=== PATIENT | male | born 1970 | race Two or more races ===

== ENCOUNTER 2016-10-24 12:26 | Inpatient (IN) | payer OTHER ==
[2016-10-24 13:45] VITALS: BMI 24.2
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
[2016-10-24] MEDS ORDERED: MAGNESIUM HYDROX 2400MG/30ML ORAL SUSPENSION 30 ML CUP PO PRN (17:59)
[2016-10-24] MEDS ORDERED: P-EPHED 60MG/TRIPROLIDI 2.5MG TABLET PO PRN (17:59)
[2016-10-24] MEDS ORDERED: chlordiazePOXIDE HCL 25 MG CAPSULE PO PRN (17:59)
[2016-10-24] MEDS ORDERED: NICOTINE POLACRILEX 2 MG GUM BC PRN (17:59)
[2016-10-24] MEDS ORDERED: ACETAMINOPHEN 325 MG TABLET (FP) PO PRN (17:59)
[2016-10-24] MEDS ORDERED: LOPERAMIDE HCL 2 MG CAPSULE PO PRN (17:59)
[2016-10-24] MEDS ORDERED: hydrOXYzine PAMOATE 50 MG CAPSULE (FP) PO PRN (17:59)
[2016-10-24] MEDS ORDERED: diphenhydrAMINE HCL 50 MG CAPSULE PO PRN (17:59)
[2016-10-24] MEDS ORDERED: MAG HYDROX/AL HYDROX/SIMETH 30 ML UNIT-DOSE CUP PO PRN (17:59)
[2016-10-24] MEDS ORDERED: MAGNESIUM CITRATE 300 ML BOTTLE PO PRN (17:59)
[2016-10-24] MEDS ORDERED: MENTHOL/PHENOL 1 EACH UD MM PRN (17:59)
[2016-10-24] MEDS ORDERED: ALBUTEROL SO4 6.7 GM HFA INHALER IH PRN (18:03)
[2016-10-24] MEDS ORDERED: chlordiazePOXIDE HCL 25 MG CAPSULE PO ONE (18:30)
[2016-10-24] MEDS: NICOTINE 21 MG/24 HOURS TOPICAL PATCH TD SCH (18:37)
[2016-10-24] MEDS: THIAMINE HCL 100 MG TABLET (FP) PO SCH (22:21)
[2016-10-24] MEDS: TRIAMCINOLONE ACETONIDE TP SCH (22:21)
[2016-10-24] MEDS: chlordiazePOXIDE HCL 25 MG CAPSULE PO SCH (22:21)
[2016-10-24 22:33] LABS: URINE APPEARANCE CLEAR; URINE BILIRUBIN NEGATIVE (NEGATIVE); URINE BLOOD NEGATIVE (NEGATIVE); URINE COLOR LTYELLOW; URINE GLUCOSE (UA) NEGATIVE (NEGATIVE); URINE KETONE NEGATIVE (NEGATIVE); URINE LEUK ESTERASE NEGATIVE (NEGATIVE); URINE NITRITE NEGATIVE (NEGATIVE); URINE PROTEIN NEGATIVE (NEGATIVE); URINE UROBILINOGEN NEGATIVE mg/dL (0.2-1.0)
[2016-10-24] MEDS: guaiFENesin/D-METHORPHAN HB 10 ML UNIT-DOSE CUPS PO PRN (22:43)
[2016-10-25] MEDS: chlordiazePOXIDE HCL 25 MG CAPSULE PO SCH ×4 (05:16→22:07)
[2016-10-25] MEDS: guaiFENesin/D-METHORPHAN HB 10 ML UNIT-DOSE CUPS PO PRN ×2 (05:17→12:30)
[2016-10-25] MEDS: PRENATAL VITAMINS W/ FOLIC ACID TABLET (FP) PO SCH (10:28)
[2016-10-25] MEDS: TRIAMCINOLONE ACETONIDE TP SCH ×2 (10:30→21:57)
[2016-10-25] MEDS: NICOTINE 21 MG/24 HOURS TOPICAL PATCH TD SCH (10:31)
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
--- NOTE | 2016-10-25 11:18 | PN ---
[facility] CIWA - CIWA Score Nausea/Vomitin-No Nausea/No Vomiting Muscle Tremors: 4-Moderate,w/Arms Extend Anxiety: 4-Mod. Anxious/Guarded Agitation: 4-Moderately Restless Paroxysmal Sweats: 1-Minimal Palms Moist Orientation: 0-Oriented Tacttile Disturbances: 3-Moderate Itch/Numb/Burn Auditory Disturbances: 0-None Visual Disturbances: 0-None Headache: 0-None Present CIWA-Ar Total Score: 16 BHS Progress Note (SOAP) Subjective: ANXIETY,SWEATS,TREMORS,INTERMITTENT SLEEP. Objective: 10/25/16 11:17 Vital Signs Temperature 97.2 F L 10/25/16 09:20 Pulse Rate 76 10/25/16 09:20 Respiratory Rate 18 10/25/16 09:20 Blood Pressure 112/77 10/25/16 09:20 O2 Sat by Pulse Oximetry (%) Laboratory Last Values Urine Color Ltyellow 10/24/16 22:20 Urine Appearance Clear 10/24/16 22:20 Urine pH 7.0 (5.0-8.0) 10/24/16 22:20 Urine Protein Negative (NEGATIVE) 10/24/16 22:20 Urine Glucose (UA) Negative (NEGATIVE) 10/24/16 22:20 Urine Ketones Negative (NEGATIVE) 10/24/16 22:20 Urine Blood Negative (NEGATIVE) 10/24/16 22:20 Urine Nitrite Negative (NEGATIVE) 10/24/16 22:20 Urine Bilirubin Negative (NEGATIVE) 10/24/16 22:20 Urine Urobilinogen Negative mg/dL (0.2-1.0) 10/24/16 22:20 Ur Leukocyte Esterase Negative (NEGATIVE) 10/24/16 22:20 OTHER LABS PENDING Assessment: 10/25/16 11:18 WITHDRAWAL SX Plan: CONTINUE DETOX
[2016-10-25] MEDS: DIVALPROEX SODIUM 250 MG TABLET E.C. (FP) PO SCH ×2 (12:30→22:07)
[2016-10-25 12:32] LABS: RDW 14.4 % (11.9-15.9)
[2016-10-25 12:36] LABS: MCH 32.9 pg (25.7-33.7); MCHC 33.1 g/dl (32.0-35.9); MEAN CELL VOLUME 99.4 fl (80-96); MEAN PLT VOLUME 9.7 fl (7.5-11.1); PLATELET COUNT 332 K/MM3 (134-434); WHITE BLOOD COUNT 9.6 K/mm3 (4.0-10.0)
[2016-10-25 12:48] LABS: ALBUMIN 3.5 g/dl (3.4-5.0); ALK PHOS 129 U/L (45-117); ANION GAP 8 (8-16); BILIRUBIN,TOTAL 0.3 mg/dL (0.2-1.0); CALCIUM 9.4 mg/dL (8.5-10.1); CO2 30 mmol/L (21-32); GLUCOSE,RANDOM 90 mg/dL (74-106); SGOT/AST 14 U/L (15-37); SGPT/ALT 28 U/L (12-78); TOT PROT 7.1 g/dl (6.4-8.2)
[2016-10-25 14:13] LABS: HIV 1 & 2 AB NEGATIVE; HIV 1 AGp24 NEGATIVE
[2016-10-25] MEDS: LIDOCAINE 5% TOPICAL PATCH TP SCH (17:30)
[2016-10-25] MEDS: ZOLPIDEM TARTRATE 10 MG TABLET (PARK CARE ONLY) PO PRN (22:07)
[2016-10-25] MEDS: THIAMINE HCL 100 MG TABLET (FP) PO SCH (22:07)
[2016-10-25] MEDS: LIDOCAINE PATCH REMOVAL MC SCH (22:09)
[2016-10-26] MEDS: IBUPROFEN 400 MG TABLET (FP) PO PRN (00:16)
[2016-10-26] MEDS: chlordiazePOXIDE HCL 25 MG CAPSULE PO SCH ×3 (05:20→17:06)
[2016-10-26] MEDS: guaiFENesin/D-METHORPHAN HB 10 ML UNIT-DOSE CUPS PO PRN (05:20)
[2016-10-26] MEDS: ALBUTEROL SO4 2.5/IPRATROPIUM 0.5 INH SOL 3 ML VIAL.NEB. NEB SCH ×3 (10:20→22:17)
[2016-10-26] MEDS: LIDOCAINE 5% TOPICAL PATCH TP SCH (10:20)
[2016-10-26] MEDS: NICOTINE 21 MG/24 HOURS TOPICAL PATCH TD SCH (10:20)
[2016-10-26] MEDS: DIVALPROEX SODIUM 250 MG TABLET E.C. (FP) PO SCH ×2 (10:20→22:12)
[2016-10-26] MEDS: PRENATAL VITAMINS W/ FOLIC ACID TABLET (FP) PO SCH (10:20)
[2016-10-26] MEDS: TRIAMCINOLONE ACETONIDE TP SCH ×2 (10:21→22:17)
[2016-10-26] MEDS: BUDESONIDE/FORMETEROL FUMARATE 80/4.5 mcg INHALER IH SCH ×2 (10:21→22:15)
--- NOTE | 2016-10-26 11:23 | PN ---
[facility] CIWA - CIWA Score Nausea/Vomitin-No Nausea/No Vomiting Muscle Tremors: 4-Moderate,w/Arms Extend Anxiety: 4-Mod. Anxious/Guarded Agitation: 4-Moderately Restless Paroxysmal Sweats: 1-Minimal Palms Moist Orientation: 0-Oriented Tacttile Disturbances: 3-Moderate Itch/Numb/Burn Auditory Disturbances: 0-None Visual Disturbances: 0-None Headache: 0-None Present CIWA-Ar Total Score: 16 BHS Progress Note (SOAP) Subjective: ANXIETY,SWEATS,COUGHING WITH BROWNISH SPUTUM. HX ASTHMA. Objective: 10/26/16 11:24 Vital Signs Temperature 97.1 F L 10/26/16 09:34 Pulse Rate 86 10/26/16 09:34 Respiratory Rate 18 10/26/16 09:34 Blood Pressure 107/71 10/26/16 09:34 O2 Sat by Pulse Oximetry (%) Laboratory Last Values WBC 9.6 K/mm3 (4.0-10.0) 10/25/16 07:40 RBC 4.57 M/mm3 (4.00-5.60) 10/25/16 07:40 Hgb 15.0 GM/dL (11.7-16.9) 10/25/16 07:40 Hct 45.4 % (35.4-49) 10/25/16 07:40 MCV 99.4 fl (80-96) H 10/25/16 07:40 MCH 32.9 pg (25.7-33.7) 10/25/16 07:40 MCHC 33.1 g/dl (32.0-35.9) 10/25/16 07:40 RDW 14.4 % (11.9-15.9) 10/25/16 07:40 Plt Count 332 K/MM3 (134-434) 10/25/16 07:40 MPV 9.7 fl (7.5-11.1) 10/25/16 07:40 Sodium 140 mmol/L (136-145) 10/25/16 07:40 Potassium 4.7 mmol/L (3.5-5.1) 10/25/16 07:40 Chloride 102 mmol/L (98-107) 10/25/16 07:40 Carbon Dioxide 30 mmol/L (21-32) 10/25/16 07:40 Anion Gap 8 (8-16) 10/25/16 07:40 BUN 15 mg/dL (7-18) D 10/25/16 07:40 Creatinine 1.0 mg/dL (0.7-1.3) 10/25/16 07:40 Creat Clearance w eGFR > 60 (>60) 10/25/16 07:40 Random Glucose 90 mg/dL (74-106) D 10/25/16 07:40 Calcium 9.4 mg/dL (8.5-10.1) 10/25/16 07:40 Total Bilirubin 0.3 mg/dL (0.2-1.0) D 10/25/16 07:40 AST 14 U/L (15-37) L D 10/25/16 07:40 ALT 28 U/L (12-78) D 10/25/16 07:40 Alkaline Phosphatase 129 U/L (45-117) H 10/25/16 07:40 Total Protein 7.1 g/dl (6.4-8.2) 10/25/16 07:40 Albumin 3.5 g/dl (3.4-5.0) 10/25/16 07:40 Urine Color Ltyellow 10/24/16 22:20 Urine Appearance Clear 10/24/16 22:20 Urine pH 7.0 (5.0-8.0) 10/24/16 22:20 Ur Specific [place] 1.020 (1.005-1.025) 10/24/16 22:20 Urine Protein Negative (NEGATIVE) 10/24/16 22:20 Urine Glucose (UA) Negative (NEGATIVE) 10/24/16 22:20 Urine Ketones Negative (NEGATIVE) 10/24/16 22:20 Urine Blood Negative (NEGATIVE) 10/24/16 22:20 Urine Nitrite Negative (NEGATIVE) 10/24/16 22:20 Urine Bilirubin Negative (NEGATIVE) 10/24/16 22:20 Urine Urobilinogen Negative mg/dL (0.2-1.0) 10/24/16 22:20 Ur Leukocyte Esterase Negative (NEGATIVE) 10/24/16 22:20 HIV 1&2 Antibody Screen Negative 10/25/16 07:40 HIV P24 Antigen Negative 10/25/16 07:40 LUNGS: OCCASIONAL MILD WHEEZING AND RHONCHI BILATERALLY. Assessment: 10/26/16 11:33 WITHDRAWAL SX Plan: CONTINUE DETOX
--- NOTE | 2016-10-26 14:50 | EKG ---
Test Reason : Blood Pressure : / mmHG Vent. Rate : 073 BPM Atrial Rate : 073 BPM P-R Int : 124 ms QRS Dur : 088 ms QT Int : 388 ms P-R-T Axes : 058 052 025 degrees QTc Int : 427 ms NORMAL SINUS RHYTHM NORMAL ECG WHEN COMPARED WITH ECG OF 24-OCT-2016 17:38, NO SIGNIFICANT CHANGE WAS FOUND Confirmed by YAIMA CHRISTOPHER MD ([id number]) on 10/26/2016 2:49:36 PM Referred By: Confirmed By:YAIMA CHRISTOPHER MD
--- NOTE | 2016-10-26 14:52 | EKG ---
Test Reason : Blood Pressure : / mmHG Vent. Rate : 070 BPM Atrial Rate : 070 BPM P-R Int : 126 ms QRS Dur : 084 ms QT Int : 388 ms P-R-T Axes : 057 055 029 degrees QTc Int : 419 ms NORMAL SINUS RHYTHM NORMAL ECG NO PREVIOUS ECGS AVAILABLE Confirmed by YAIMA CHRISTOPHER MD ([id number]) on 10/26/2016 2:51:27 PM Referred By: Confirmed By:YAIMA CHRISTOPHER MD
[2016-10-26] MEDS: THIAMINE HCL 100 MG TABLET (FP) PO SCH (22:12)
[2016-10-26] MEDS: LIDOCAINE PATCH REMOVAL MC SCH (22:12)
[2016-10-26] MEDS: ZOLPIDEM TARTRATE 10 MG TABLET (PARK CARE ONLY) PO PRN (22:12)
[2016-10-26] MEDS: chlordiazePOXIDE 5 MG CAPSULE PO SCH (22:12)
[2016-10-27] MEDS ORDERED: ALBUTEROL SO4 2.5/IPRATROPIUM 0.5 INH SOL 3 ML VIAL.NEB. NEB ONE (02:07)
[2016-10-27] MEDS: chlordiazePOXIDE 5 MG CAPSULE PO SCH ×3 (05:26→17:08)
[2016-10-27] MEDS ORDERED: ALBUTEROL SO4 2.5/IPRATROPIUM 0.5 INH SOL 3 ML VIAL.NEB. NEB SCH (09:51)
[2016-10-27] MEDS: ALBUTEROL SO4 2.5/IPRATROPIUM 0.5 INH SOL 3 ML VIAL.NEB. NEB SCH ×4 (10:30→22:22)
[2016-10-27] MEDS: BUDESONIDE/FORMETEROL FUMARATE 80/4.5 mcg INHALER IH SCH ×2 (10:30→22:17)
[2016-10-27] MEDS: PRENATAL VITAMINS W/ FOLIC ACID TABLET (FP) PO SCH (10:30)
[2016-10-27] MEDS: DIVALPROEX SODIUM 250 MG TABLET E.C. (FP) PO SCH ×2 (10:30→22:17)
[2016-10-27] MEDS: TRIAMCINOLONE ACETONIDE TP SCH ×2 (10:31→22:26)
[2016-10-27] MEDS: LIDOCAINE 5% TOPICAL PATCH TP SCH (10:31)
[2016-10-27] MEDS: NICOTINE 21 MG/24 HOURS TOPICAL PATCH TD SCH (10:31)
--- NOTE | 2016-10-27 10:43 | PN ---
BHS Progress Note (SOAP) Subjective: SLIGHT ANXIETY,SWEATS, TREMORS. OOB. NO C/O SOB. Objective: 10/27/16 10:41 Vital Signs Temperature 99.0 F 10/27/16 09:26 Pulse Rate 99 H 10/27/16 09:26 Respiratory Rate 18 10/27/16 09:26 Blood Pressure 105/70 10/27/16 09:26 O2 Sat by Pulse Oximetry (%) Laboratory Last Values WBC 9.6 K/mm3 (4.0-10.0) 10/25/16 07:40 RBC 4.57 M/mm3 (4.00-5.60) 10/25/16 07:40 Hgb 15.0 GM/dL (11.7-16.9) 10/25/16 07:40 Hct 45.4 % (35.4-49) 10/25/16 07:40 MCV 99.4 fl (80-96) H 10/25/16 07:40 MCH 32.9 pg (25.7-33.7) 10/25/16 07:40 MCHC 33.1 g/dl (32.0-35.9) 10/25/16 07:40 RDW 14.4 % (11.9-15.9) 10/25/16 07:40 Plt Count 332 K/MM3 (134-434) 10/25/16 07:40 MPV 9.7 fl (7.5-11.1) 10/25/16 07:40 Sodium 140 mmol/L (136-145) 10/25/16 07:40 Potassium 4.7 mmol/L (3.5-5.1) 10/25/16 07:40 Chloride 102 mmol/L (98-107) 10/25/16 07:40 Carbon Dioxide 30 mmol/L (21-32) 10/25/16 07:40 Anion Gap 8 (8-16) 10/25/16 07:40 BUN 15 mg/dL (7-18) D 10/25/16 07:40 Creatinine 1.0 mg/dL (0.7-1.3) 10/25/16 07:40 Creat Clearance w eGFR > 60 (>60) 10/25/16 07:40 Random Glucose 90 mg/dL (74-106) D 10/25/16 07:40 Calcium 9.4 mg/dL (8.5-10.1) 10/25/16 07:40 Total Bilirubin 0.3 mg/dL (0.2-1.0) D 10/25/16 07:40 AST 14 U/L (15-37) L D 10/25/16 07:40 ALT 28 U/L (12-78) D 10/25/16 07:40 Alkaline Phosphatase 129 U/L (45-117) H 10/25/16 07:40 Total Protein 7.1 g/dl (6.4-8.2) 10/25/16 07:40 Albumin 3.5 g/dl (3.4-5.0) 10/25/16 07:40 Urine Color Ltyellow 10/24/16 22:20 Urine Appearance Clear 10/24/16 22:20 Urine pH 7.0 (5.0-8.0) 10/24/16 22:20 Ur Specific [place] 1.020 (1.005-1.025) 10/24/16 22:20 Urine Protein Negative (NEGATIVE) 10/24/16 22:20 Urine Glucose (UA) Negative (NEGATIVE) 10/24/16 22:20 Urine Ketones Negative (NEGATIVE) 10/24/16 22:20 Urine Blood Negative (NEGATIVE) 10/24/16 22:20 Urine Nitrite Negative (NEGATIVE) 10/24/16 22:20 Urine Bilirubin Negative (NEGATIVE) 10/24/16 22:20 Urine Urobilinogen Negative mg/dL (0.2-1.0) 10/24/16 22:20 Ur Leukocyte Esterase Negative (NEGATIVE) 10/24/16 22:20 Valproic Acid 27.022 ug/ml (50-100) L 10/26/16 10:00 RPR Titer Nonreactive (NONREACTIVE) 10/25/16 07:40 HIV 1&2 Antibody Screen Negative 10/25/16 07:40 HIV P24 Antigen Negative 10/25/16 07:40 LUNGS: GROSSLY CLEAR TO A/P ALL [place]. Assessment: 10/27/16 10:42 WITHDRAWAL SX Plan: CONTINUE DETOX
[2016-10-27 21:52] VITALS: TEMP 96.9
[2016-10-27] MEDS ORDERED: MONTELUKAST NA 10 MG TABLET PO SCH (22:00)
[2016-10-27] MEDS: THIAMINE HCL 100 MG TABLET (FP) PO SCH (22:17)
[2016-10-27] MEDS: LIDOCAINE PATCH REMOVAL MC SCH (22:17)
[2016-10-27] MEDS: chlordiazePOXIDE HCL 10 MG CAPSULE PO SCH (22:17)
[2016-10-27] MEDS: ZOLPIDEM TARTRATE 10 MG TABLET (PARK CARE ONLY) PO PRN (22:17)
[2016-10-28] MEDS: IBUPROFEN 400 MG TABLET (FP) PO PRN (00:24)
[2016-10-28] MEDS: chlordiazePOXIDE HCL 10 MG CAPSULE PO SCH (05:52)
[2016-10-28 06:18] VITALS: BP 110/73; PULSE 83
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
== END 2016-10-28 08:50 | disposition home or self-care (01) | DRG 897 ==
LOC: YASAS 12:26 → Y3N 17:48
PROVIDERS: ADMIT Internal Medicine; ATTEND Internal Medicine
PROC: HZ2ZZZZ Detoxification Services for Substance Abuse Treatment (ICD-10-PCS; principal; 2016-10-24)
DX: F10.230 Alcohol dependence with withdrawal, uncomplicated (principal); F14.20 Cocaine dependence, uncomplicated; F17.213 Nicotine dependence, cigarettes, with withdrawal; F19.24 Other psychoactive substance dependence with psychoactive substance-induced mood disorder; F31.9 Bipolar disorder, unspecified; J45.20 Mild intermittent asthma, uncomplicated; L40.9 Psoriasis, unspecified; M51.26 Other intervertebral disc displacement, lumbar region; M54.5 Low back pain; G89.29 Other chronic pain; Z87.898 Personal history of other specified conditions; Z59.0 Homelessness
CPT/HCPCS: 36415; 80053; 80164; 81003; 85027; 86593; 87389; 93005; 93010; 94640

== ENCOUNTER 2017-08-24 12:09 | Inpatient (IN) | payer OTHER ==
[2017-08-24 13:24] VITALS: BMI 24.3
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
[2017-08-24] MEDS ORDERED: IBUPROFEN 400 MG TABLET (FP) PO PRN (14:52)
[2017-08-24] MEDS ORDERED: guaiFENesin/D-METHORPHAN HB 10 ML UNIT-DOSE CUPS PO PRN (14:52)
[2017-08-24] MEDS ORDERED: MENTHOL/PHENOL 1 EACH UD MM PRN (14:52)
[2017-08-24] MEDS ORDERED: MAGNESIUM CITRATE 300 ML BOTTLE PO PRN (14:52)
[2017-08-24] MEDS ORDERED: LOPERAMIDE HCL 2 MG CAPSULE PO PRN (14:52)
[2017-08-24] MEDS ORDERED: MAG HYDROX/AL HYDROX/SIMETH 30 ML UNIT-DOSE CUP PO PRN (14:52)
[2017-08-24] MEDS ORDERED: P-EPHED 60MG/TRIPROLIDI 2.5MG TABLET PO PRN (14:52)
[2017-08-24] MEDS ORDERED: MAGNESIUM HYDROX 2400MG/30ML ORAL SUSPENSION 30 ML CUP PO PRN (14:52)
[2017-08-24] MEDS ORDERED: ACETAMINOPHEN 325 MG TABLET (FP) PO PRN (14:52)
[2017-08-24] MEDS ORDERED: NICOTINE POLACRILEX 4 MG GUM BC PRN (14:52)
[2017-08-24] MEDS ORDERED: ALBUTEROL SO4 18 GM HFA INHALER IH PRN (14:53)
[2017-08-24] MEDS: CYCLOBENZAPRINE HCL 10 MG TABLET (FP) PO SCH ×2 (18:00→21:22)
[2017-08-24] MEDS ORDERED: TUBERCULIN PPD 5 TU/0.1ML VIAL ID ONE (19:07)
[2017-08-24] MEDS: NICOTINE 21 MG/24 HOURS TOPICAL PATCH TD SCH (19:14)
[2017-08-24] MEDS: TRIAMCINOLONE ACET 0.5% OINT 15 GM TUBE TP SCH (21:21)
[2017-08-24] MEDS: MELATONIN 5 MG TABLETS PO PRN (21:21)
[2017-08-24] MEDS: THIAMINE HCL 100 MG TABLET (FP) PO SCH (21:21)
[2017-08-24 23:19] LABS: URINE APPEARANCE CLEAR; URINE BILIRUBIN NEGATIVE (<2.0 mg/dL); URINE BLOOD NEGATIVE (NEGATIVE); URINE COLOR LTYELLOW; URINE GLUCOSE (UA) NEGATIVE (NEGATIVE); URINE KETONE NEGATIVE (NEGATIVE); URINE LEUK ESTERASE NEGATIVE (NEGATIVE); URINE NITRITE NEGATIVE (NEGATIVE); URINE PROTEIN NEGATIVE (NEGATIVE); URINE UROBILINOGEN NEGATIVE mg/dL (0.2-1.0)
[2017-08-25] MEDS: CYCLOBENZAPRINE HCL 10 MG TABLET (FP) PO SCH ×3 (06:21→21:03)
[2017-08-25] MEDS: NICOTINE 21 MG/24 HOURS TOPICAL PATCH TD SCH (09:59)
[2017-08-25] MEDS: PRENATAL VITAMINS W/ FOLIC ACID TABLET (FP) PO SCH (09:59)
[2017-08-25] MEDS: TRIAMCINOLONE ACET 0.5% OINT 15 GM TUBE TP SCH ×2 (10:00→21:05)
[2017-08-25 10:27] LABS: HEMOGLOBIN 14.6 GM/dL (11.7-16.9); MCH 33.2 pg (25.7-33.7); MEAN CELL VOLUME 97.6 fl (80-96); MEAN PLT VOLUME 10.6 fl (7.5-11.1); PLATELET COUNT 335 K/MM3 (134-434); RBC 4.41 M/mm3 (4.00-5.60); RDW 13.3 % (11.9-15.9); WHITE BLOOD COUNT 6.8 K/mm3 (4.0-10.0)
[2017-08-25 10:45] LABS: CHLORIDE 104 mmol/L (98-107); POTASSIUM 4.6 mmol/L (3.5-5.1); SODIUM 135 mmol/L (136-145)
[2017-08-25 11:14] LABS: ALK PHOS 111 U/L (45-117); ANION GAP 7 (8-16); BILIRUBIN,TOTAL 0.3 mg/dL (0.2-1.0); BLOOD UREA NITROGEN 18 mg/dL (7-18); CALCIUM 9.6 mg/dL (8.5-10.1); CO2 24 mmol/L (21-32); GLUCOSE,RANDOM 96 mg/dL (74-106); SGOT/AST 20 U/L (15-37); SGPT/ALT 42 U/L (12-78); TOT PROT 7.7 g/dl (6.4-8.2)
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
--- NOTE | 2017-08-25 14:57 | PN ---
[facility] Progress Note Note: PATIENT PRESENTS WITH CHRONIC BACK PAIN DUE TO HERNIATED DISCS. PAIN LEVEL 6/10 , NON-RADIATING. PAIN DAILY AND DESCRIBED SHARP. Laboratory Tests 08/24/17 08/25/17 08/25/17 23:10 06:00 06:00 WBC 6.8 RBC 4.41 Hgb 14.6 Hct 43.0 MCV 97.6 H MCH 33.2 MCHC 34.0 RDW 13.3 Plt Count 335 MPV 10.6 Sodium 135 L Potassium 4.6 Chloride 104 Carbon Dioxide 24 Anion Gap 7 L BUN 18 Creatinine 1.0 Creat Clearance w eGFR > 60 Random Glucose 96 Calcium 9.6 Total Bilirubin 0.3 AST 20 D ALT 42 D Alkaline Phosphatase 111 Total Protein 7.7 Albumin 4.0 Urine Color Ltyellow Urine Appearance Clear Urine pH 7.0 Ur Specific [place] 1.010 Urine Protein Negative Urine Glucose (UA) Negative Urine Ketones Negative Urine Blood Negative Urine Nitrite Negative Urine Bilirubin Negative Urine Urobilinogen Negative Ur Leukocyte Esterase Negative Valproic Acid RPR Titer 08/25/17 08/25/17 06:00 06:00 WBC RBC Hgb Hct MCV MCH MCHC RDW Plt Count MPV Sodium Potassium Chloride Carbon Dioxide Anion Gap BUN Creatinine Creat Clearance w eGFR Random Glucose Calcium Total Bilirubin AST ALT Alkaline Phosphatase Total Protein Albumin Urine Color Urine Appearance Urine pH Ur Specific [place] Urine Protein Urine Glucose (UA) Urine Ketones Urine Blood Urine Nitrite Urine Bilirubin Urine Urobilinogen Ur Leukocyte Esterase Valproic Acid < 3.0 L RPR Titer Nonreactive Vital Signs Temperature 97.8 F 08/25/17 09:34 Pulse Rate 92 H 08/25/17 09:34 Respiratory Rate 18 08/25/17 09:34 Blood Pressure 113/86 08/25/17 09:34 O2 Sat by Pulse Oximetry (%) OBJ: GENERAL: AMBULATES WITHOUT DEVICE IN HALLWAY SKIN: WARM AND DRY EXT: NO EDEMA, FULL ROM MS: TENDERNESS TO L-SPINE. A/P: LBP WILL ORDER LIDOCAINE PATCH CONTINUE FLEXERIL TREATED WITH GABAPENTIN 1200MG BID IN PAST. WILL ADD GABAPENTIN 600MG TID CONTINUE TO MONITOR CLINICALLY
[2017-08-25] MEDS: LIDOCAINE 5% TOPICAL PATCH TP SCH (15:47)
--- NOTE | 2017-08-25 18:19 | PN ---
[facility] Progress Note Note: Psychiatric nurse practitioner note: Valproic level <3.0. Indicative of patient's noncompliance of depakote medication. Depakote 250mg ER ordered qhs.
[2017-08-25] MEDS: DIVALPROEX SODIUM 250 MG TABLET E.C. PO SCH (21:03)
[2017-08-25] MEDS: GABAPENTIN 300 MG CAPSULE (FP) PO SCH (21:03)
[2017-08-25] MEDS: THIAMINE HCL 100 MG TABLET (FP) PO SCH (21:03)
[2017-08-25] MEDS: LIDOCAINE PATCH REMOVAL MC SCH (21:04)
[2017-08-25] MEDS: MELATONIN 5 MG TABLETS PO PRN (21:04)
[2017-08-25] MEDS: SUVOREXANT 10 MG TABLET PO PRN (21:06)
[2017-08-26] MEDS: CYCLOBENZAPRINE HCL 10 MG TABLET (FP) PO SCH ×3 (06:05→21:11)
[2017-08-26] MEDS: GABAPENTIN 300 MG CAPSULE (FP) PO SCH ×3 (06:05→21:11)
[2017-08-26] MEDS: PRENATAL VITAMINS W/ FOLIC ACID TABLET (FP) PO SCH (10:02)
[2017-08-26] MEDS: NICOTINE 21 MG/24 HOURS TOPICAL PATCH TD SCH (10:03)
[2017-08-26] MEDS: LIDOCAINE 5% TOPICAL PATCH TP SCH (10:06)
[2017-08-26] MEDS: TRIAMCINOLONE ACET 0.5% OINT 15 GM TUBE TP SCH ×2 (14:20→21:12)
[2017-08-26] MEDS: LIDOCAINE PATCH REMOVAL MC SCH (21:11)
[2017-08-26] MEDS: DIVALPROEX SODIUM 250 MG TABLET E.C. PO SCH (21:11)
[2017-08-26] MEDS: SUVOREXANT 10 MG TABLET PO PRN (21:11)
[2017-08-26] MEDS: THIAMINE HCL 100 MG TABLET (FP) PO SCH (21:11)
[2017-08-27] MEDS: GABAPENTIN 300 MG CAPSULE (FP) PO SCH ×3 (07:08→21:12)
[2017-08-27] MEDS: CYCLOBENZAPRINE HCL 10 MG TABLET (FP) PO SCH ×3 (07:08→21:12)
[2017-08-27] MEDS: PRENATAL VITAMINS W/ FOLIC ACID TABLET (FP) PO SCH (09:53)
[2017-08-27] MEDS: NICOTINE 21 MG/24 HOURS TOPICAL PATCH TD SCH (09:53)
[2017-08-27] MEDS: LIDOCAINE 5% TOPICAL PATCH TP SCH (09:54)
[2017-08-27] MEDS: TRIAMCINOLONE ACET 0.5% OINT 15 GM TUBE TP SCH ×2 (09:54→21:13)
--- NOTE | 2017-08-27 11:45 | EKG ---
Test Reason : Blood Pressure : / mmHG Vent. Rate : 082 BPM Atrial Rate : 082 BPM P-R Int : 128 ms QRS Dur : 084 ms QT Int : 364 ms P-R-T Axes : 057 053 031 degrees QTc Int : 425 ms POOR DATA QUALITY, INTERPRETATION MAY BE ADVERSELY AFFECTED NORMAL SINUS RHYTHM NORMAL ECG WHEN COMPARED WITH ECG OF 26-OCT-2016 11:12, NO SIGNIFICANT CHANGE WAS FOUND Confirmed by MD Timoteo, Neil ([id number]) on 08/27/2017 11:44:36 AM Referred By: Confirmed By:Neil Mahmood MD
[2017-08-27] MEDS: SUVOREXANT 10 MG TABLET PO PRN (21:12)
[2017-08-27] MEDS: THIAMINE HCL 100 MG TABLET (FP) PO SCH (21:12)
[2017-08-27] MEDS: LIDOCAINE PATCH REMOVAL MC SCH (21:12)
[2017-08-27] MEDS: DIVALPROEX SODIUM 250 MG TABLET E.C. PO SCH (21:12)
[2017-08-28] MEDS: CYCLOBENZAPRINE HCL 10 MG TABLET (FP) PO SCH ×3 (06:26→21:14)
[2017-08-28] MEDS: GABAPENTIN 300 MG CAPSULE (FP) PO SCH ×3 (06:26→21:14)
[2017-08-28] MEDS: PRENATAL VITAMINS W/ FOLIC ACID TABLET (FP) PO SCH (09:55)
[2017-08-28] MEDS: NICOTINE 21 MG/24 HOURS TOPICAL PATCH TD SCH (09:55)
[2017-08-28] MEDS: LIDOCAINE 5% TOPICAL PATCH TP SCH (09:55)
--- NOTE | 2017-08-28 13:02 | PN ---
[facility] Progress Note Note: Psychiatric nurse practitioner note: Belsoa 10mg renewed. Verbal consent given.
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
[2017-08-28] MEDS: TRIAMCINOLONE ACET 0.5% OINT 15 GM TUBE TP SCH (14:04)
--- NOTE | 2017-08-28 14:58 | PN ---
[facility] Progress Note Note: Patient c/o worsening psoriasis on arms and legs. States Triamincinolone ineffective for treatment. Complain of itching to skin. Laboratory Tests 08/24/17 08/25/17 08/25/17 23:10 06:00 06:00 WBC 6.8 RBC 4.41 Hgb 14.6 Hct 43.0 MCV 97.6 H MCH 33.2 MCHC 34.0 RDW 13.3 Plt Count 335 MPV 10.6 Sodium 135 L Potassium 4.6 Chloride 104 Carbon Dioxide 24 Anion Gap 7 L BUN 18 Creatinine 1.0 Creat Clearance w eGFR > 60 Random Glucose 96 Calcium 9.6 Total Bilirubin 0.3 AST 20 D ALT 42 D Alkaline Phosphatase 111 Total Protein 7.7 Albumin 4.0 Urine Color Ltyellow Urine Appearance Clear Urine pH 7.0 Ur Specific [place] 1.010 Urine Protein Negative Urine Glucose (UA) Negative Urine Ketones Negative Urine Blood Negative Urine Nitrite Negative Urine Bilirubin Negative Urine Urobilinogen Negative Ur Leukocyte Esterase Negative Valproic Acid RPR Titer 08/25/17 08/25/17 06:00 06:00 WBC RBC Hgb Hct MCV MCH MCHC RDW Plt Count MPV Sodium Potassium Chloride Carbon Dioxide Anion Gap BUN Creatinine Creat Clearance w eGFR Random Glucose Calcium Total Bilirubin AST ALT Alkaline Phosphatase Total Protein Albumin Urine Color Urine Appearance Urine pH Ur Specific [place] Urine Protein Urine Glucose (UA) Urine Ketones Urine Blood Urine Nitrite Urine Bilirubin Urine Urobilinogen Ur Leukocyte Esterase Valproic Acid < 3.0 L RPR Titer Nonreactive obj: Skin: +psoriatic plaques on arms and legs. No open areas or ulcerations. No redness or swelling or extremities noted. A/P: Psoriasis Will d/c previous treatment start Hydrocortisone 15 TID continue to monitor clinically
[2017-08-28] MEDS: THIAMINE HCL 100 MG TABLET (FP) PO SCH (21:13)
[2017-08-28] MEDS: DIVALPROEX SODIUM 250 MG TABLET E.C. PO SCH (21:14)
[2017-08-28] MEDS: SUVOREXANT 10 MG TABLET PO PRN (21:16)
[2017-08-28] MEDS: HYDROCORTISONE 1% TOPICAL OINT 30 GM TUBE TP SCH (21:16)
[2017-08-28] MEDS: LIDOCAINE PATCH REMOVAL MC SCH (21:17)
[2017-08-29 06:39] VITALS: BP 118/74; PULSE 97; TEMP 98.4
[2017-08-29] MEDS: GABAPENTIN 300 MG CAPSULE (FP) PO SCH (06:45)
[2017-08-29] MEDS: HYDROCORTISONE 1% TOPICAL OINT 30 GM TUBE TP SCH (06:48)
[2017-08-29] MEDS: CYCLOBENZAPRINE HCL 10 MG TABLET (FP) PO SCH (06:48)
--- NOTE | 2017-08-29 09:12 | PN ---
Psychiatric Progress Note Vital Signs: Vital Signs Period Temp Pulse Resp BP Sys/Pinedo Pulse Ox Last 24 Hr 98.4 F 97 18-18 118/74 Date of Session: 08/29/17 Chief Complaint:: Discharge Note HPI: Patient addressing Alcohol and Cocaine Dependence comorbid with Nicotine Dependence, Bipolar Disorder and Substance-Induced Mood Disorder ROS: Asthma, Psoriasis Current Medications: Active Medications Generic Name Dose Route Start Last Admin Trade Name Freq PRN Reason Stop Dose Admin Acetaminophen 650 mg 08/24/17 14:52 Tylenol - PO Q4H PRN FEVER Al Hydroxide/Mg Hydroxide 30 ml 08/24/17 14:52 08/27/17 15:19 Mylanta Oral Suspension - PO 30 ml Q6H PRN Administration DYSPEPSIA Albuterol Sulfate 2 puff 08/24/17 14:53 Ventolin Hfa Inhaler - IH Q4H PRN ASTHMA Bupropion HCl 150 mg 08/26/17 10:00 08/28/17 09:57 Wellbutrin Xl - PO 150 mg DAILY [place] Administration Cyclobenzaprine HCl 10 mg 08/24/17 16:45 08/29/17 06:48 Flexeril - PO Not Given TID CHILANGO Divalproex Sodium 250 mg 08/25/17 22:00 08/28/17 21:14 Depakote - PO 250 mg HS CHILANGO Administration Eucalyptus/Menthol/Phenol/Sorbitol 1 each 08/24/17 14:52 Cepastat Lozenge - MM Q4H PRN SORE THROAT Gabapentin 600 mg 08/25/17 22:00 08/29/17 06:45 Neurontin - PO 600 mg TID CHILANGO Administration Guaifenesin 10 ml 08/24/17 14:52 Robitussin Dm - PO Q6H PRN COUGH Hydrocortisone 1 applic 08/28/17 22:00 08/29/17 06:48 Hytone 1% Ointment - TP Not Given TID CHILANGO Ibuprofen 400 mg 08/24/17 14:52 08/27/17 04:53 Motrin - PO 400 mg Q6H PRN Administration Pain level 4-6 Lidocaine 1 patch 08/25/17 15:15 08/28/17 09:55 Lidoderm Patch - TP 1 patch DAILY CHILANGO Administration Loperamide HCl 4 mg 08/24/17 14:52 Imodium - PO Q6H PRN DIARRHEA Magnesium Citrate 300 ml 08/24/17 14:52 Citroma - PO Q48H PRN CONSTIPATION Magnesium Hydroxide 30 ml 08/24/17 14:52 Milk Of Magnesia - PO DAILY PRN CONSTIPATION Melatonin 5 mg 08/24/17 22:00 08/25/17 21:04 Melatonin PO 5 mg HS PRN Administration INSOMNIA Miscellaneous 1 each 08/25/17 22:00 08/28/17 21:17 Lidoderm Patch Removal MC 1 each DAILY@2200 CHILANGO Administration Nicotine 21 mg 08/24/17 16:45 08/28/17 09:55 Nicoderm Patch - TD 21 mg DAILY CHILANGO Administration Nicotine Polacrilex 4 mg 08/24/17 14:52 08/29/17 06:47 Nicorette Gum - BC 4 mg Q2H PRN Administration NICOTINE REPLACEMENT RX Multivit/Folic Acid/Iron 1 tab 08/25/17 10:00 08/28/17 09:55 Vitamins (Sjr) - PO 1 tab DAILY CHILANGO Administration Pseudoephedrine/Triprolidine 1 combo 08/24/17 14:52 Actifed - PO TID PRN NASAL CONGESTION Suvorexant 10 mg 08/25/17 22:00 08/28/17 21:16 Belsomra PO 08/28/17 21:59 10 mg HS PRN Administration INSOMNIA Thiamine HCl 100 mg 08/24/17 22:00 08/28/17 21:13 Vitamin B1 - PO 100 mg HS CHILANGO Administration Current Side Effect: No Lab tests ordered: Yes Lab tests reviewed: Yes Provider note:: Patient has not completed this program today and has not met his treatment goals. Reports that he is leaving against medical advice because he is not prescribed the proper medication for Psoriasis. He is referred to [facility] for outpatient treatment. Sripts for his medications(Depakote,Wellbutin XL) are electronically transmitted to [facility] at [address] [place] [address]. He is stable for leaning AMA Total face to face time:: 35 Mental Status Exam - Mental Status Exam Alert and Oriented to: Time, Place, Person Cognitive Function: Fair Patient Appearance: Well Groomed Mood: Hopeful, Euthymic, Irritable Affect: Appropriate Patient Behavior: Cooperative Voice Loudness: Normal Thought Process: Intact Thought Disorder: Not Present Hallucinations: Denies Suicidal Ideation: Denies Homicidal Ideation: Denies Insight/Judgement: Fair Sleep: Fair Appetite: Good Muscle strength/Tone: Normal Gait/Station: Normal Psychiatric Treatment Plan - Problem List (1) Alcohol dependence Current Visit: Yes (2) Cocaine dependence Current Visit: Yes Qualifiers: Substance use status: uncomplicated Qualified Code(s): F14.20 - Cocaine dependence, uncomplicated (3) Nicotine dependence Current Visit: Yes (4) Bipolar disorder Current Visit: Yes (5) Substance induced mood disorder Current Visit: Yes (6) Weight loss Current Visit: Yes (7) Psoriasis Current Visit: Yes (8) Asthma Current Visit: Yes Qualifiers: Asthma severity: mild Asthma complication type: uncomplicated (9) Herniated disc Current Visit: Yes Qualifiers: Spinal region: lumbar Qualified Code(s): M51.26 - Other intervertebral disc displacement, lumbar region Initial treatment plan: Patient is discharged AMA
[2017-08-29] MEDS: NICOTINE 21 MG/24 HOURS TOPICAL PATCH TD SCH (10:01)
[2017-08-29] MEDS: PRENATAL VITAMINS W/ FOLIC ACID TABLET (FP) PO SCH (10:01)
[2017-08-29] MEDS: LIDOCAINE 5% TOPICAL PATCH TP SCH (10:01)
== END 2017-08-29 09:25 | disposition left against medical advice (07) | DRG 894 ==
LOC: YASAS 12:09 → Y3W 17:21 → Y5N 08-25 09:12
PROVIDERS: ADMIT Psychiatry & Neurology Psychiatry; ATTEND Psychiatry & Neurology Psychiatry
PROC: HZ42ZZZ Group Counseling for Substance Abuse Treatment, Cognitive-Behavioral (ICD-10-PCS; principal; 2017-08-24)
DX: F14.20 Cocaine dependence, uncomplicated (principal); F31.81 Bipolar II disorder; F19.282 Other psychoactive substance dependence with psychoactive substance-induced sleep disorder; F10.20 Alcohol dependence, uncomplicated; F17.210 Nicotine dependence, cigarettes, uncomplicated; F19.24 Other psychoactive substance dependence with psychoactive substance-induced mood disorder; J45.909 Unspecified asthma, uncomplicated; L40.9 Psoriasis, unspecified; M51.26 Other intervertebral disc displacement, lumbar region; Z88.0 Allergy status to penicillin; Z87.898 Personal history of other specified conditions; Z91.5 Personal history of self-harm
CPT/HCPCS: 36415; 80053; 80164; 81003; 85027; 86593; 93005; 93010

== ENCOUNTER 2022-04-08 17:48 | Inpatient (IN) | payer OTHER ==
[2022-04-08 20:42] VITALS: BMI 24.2
[2022-04-09] MEDS ORDERED: chlordiazePOXIDE HCL 10 MG CAPSULE PO PRN
[2022-04-09] MEDS ORDERED: ONDANSETRON *ODT* 4 MG TABLET SL PRN (04:26)
[2022-04-09] MEDS ORDERED: LOPERAMIDE HCL 2 MG CAPSULE PO PRN (04:26)
[2022-04-09] MEDS ORDERED: MAG HYDROX/AL HYDROX/SIMETH 30 ML UNIT-DOSE CUP PO PRN (04:26)
[2022-04-09] MEDS ORDERED: BISMUTH SUBSALICYLATE 524 MG/30 ML PO PRN (04:26)
[2022-04-09] MEDS ORDERED: POLYETHYLENE GLYCOL (HEALTHYLAX) 3350 17 GM PACKET PO PRN (04:26)
[2022-04-09] MEDS ORDERED: IBUPROFEN 600 MG TABLET (FP) PO PRN (04:26)
[2022-04-09] MEDS ORDERED: MAGNESIUM HYDROX 2400MG/30ML ORAL SUSPENSION 30 ML CUP PO PRN (04:26)
[2022-04-09] MEDS ORDERED: DICYCLOMINE HCL 10 MG CAPSULE PO PRN (04:26)
[2022-04-09] MEDS ORDERED: IBUPROFEN 400 MG TABLET (FP) PO PRN (04:26)
[2022-04-09] MEDS ORDERED: BENZOCAINE/MENTHOL (CHLORASEPTIC ) LOZENGE MM PRN (04:26)
[2022-04-09] MEDS ORDERED: ACETAMINOPHEN 325 MG TABLET (FP) PO PRN ×2 (04:26)
[2022-04-09] MEDS ORDERED: NALOXONE HCL (KLOXXADO) 8 MG SPRAY NS PRN (04:26)
[2022-04-09] MEDS ORDERED: hydrOXYzine PAMOATE 25 MG CAPSULE (FP) PO PRN (04:26)
[2022-04-09] MEDS: chlordiazePOXIDE HCL 25 MG CAPSULE PO SCH ×3 (10:28→22:15)
[2022-04-09] MEDS: PRENATAL VITAMINS W/ FOLIC ACID TABLET (FP) PO SCH (10:31)
[2022-04-09] MEDS: NICOTINE 14 MG/24 HOURS TOPICAL PATCH TD SCH (10:32)
[2022-04-09] MEDS: NICOTINE 10 MG CARTRIDGE (INHALER) IH PRN ×2 (13:44→17:55)
[2022-04-09] MEDS: THIAMINE HCL 100 MG TABLET (FP) PO SCH (22:15)
[2022-04-09] MEDS: DIVALPROEX SODIUM 250 MG TABLET E.C. PO SCH (22:15)
[2022-04-09] MEDS: MELATONIN 5 MG TABLETS PO SCH (22:15)
[2022-04-10] MEDS: chlordiazePOXIDE HCL 25 MG CAPSULE PO SCH (05:46)
[2022-04-10] MEDS: NICOTINE 10 MG CARTRIDGE (INHALER) IH PRN ×4 (06:21→21:34)
[2022-04-10] MEDS: chlordiazePOXIDE HCL 10 MG CAPSULE PO SCH ×4 (07:57→22:29)
[2022-04-10] MEDS ORDERED: ALBUTEROL SO4 HFA INHALER IH PRN (08:45)
[2022-04-10] MEDS ORDERED: BACITRACIN 15 GM TUBE TOPICAL OINTMENT TP SCH (10:00)
[2022-04-10] MEDS: DIVALPROEX SODIUM 250 MG TABLET E.C. PO SCH ×2 (10:23→22:28)
[2022-04-10] MEDS: NICOTINE 14 MG/24 HOURS TOPICAL PATCH TD SCH (10:26)
[2022-04-10] MEDS: PRENATAL VITAMINS W/ FOLIC ACID TABLET (FP) PO SCH (10:26)
[2022-04-10 12:01] LABS: HEMATOCRIT 44.9 % (35.4-49); HEMOGLOBIN 15.1 GM/dL (11.7-16.9); MCH 33.6 pg (25.7-33.7); MCHC 33.6 g/dl (32.0-35.9); MEAN CELL VOLUME 99.9 fl (80-96); MEAN PLT VOLUME 9.6 fl (7.5-11.1); PLATELET COUNT 297 10^3/uL (134-434); RBC 4.49 M/mm3 (4.00-5.60); RDW 13.4 % (11.9-15.9); WHITE BLOOD COUNT 5.3 K/mm3 (4.0-10.0)
[2022-04-10 12:02] LABS: CALCIUM 9.3 mg/dL (8.5-10.1)
[2022-04-10 12:03] LABS: ALBUMIN 3.5 g/dl (3.4-5.0); BLOOD UREA NITROGEN 14.4 mg/dL (7-18)
[2022-04-10 12:06] LABS: CREATININE 0.8 mg/dL (0.55-1.3)
[2022-04-10 12:08] LABS: BILIRUBIN,TOTAL 0.2 mg/dL (0.2-1); TOT PROT 6.7 g/dl (6.4-8.2)
[2022-04-10] MEDS: MELATONIN 5 MG TABLETS PO SCH (22:29)
[2022-04-10] MEDS: THIAMINE HCL 100 MG TABLET (FP) PO SCH (22:29)
[2022-04-11] MEDS: chlordiazePOXIDE HCL 10 MG CAPSULE PO SCH ×3 (05:26→18:00)
[2022-04-11] MEDS: NICOTINE 10 MG CARTRIDGE (INHALER) IH PRN ×3 (05:37→22:32)
[2022-04-11] MEDS: BACITRACIN 0.9 GM PACKET TP SCH (10:32)
[2022-04-11] MEDS: METHOCARBAMOL 500 MG TABLET PO PRN ×2 (10:32→18:03)
[2022-04-11] MEDS: PRENATAL VITAMINS W/ FOLIC ACID TABLET (FP) PO SCH (10:32)
[2022-04-11] MEDS: DIVALPROEX SODIUM 250 MG TABLET E.C. PO SCH ×2 (10:32→22:31)
[2022-04-11] MEDS: NICOTINE 14 MG/24 HOURS TOPICAL PATCH TD SCH (10:33)
[2022-04-11] MEDS: FLUOCINONIDE 0.05% TOP OINT (60 GM TUBE) TP SCH (22:31)
[2022-04-11] MEDS: THIAMINE HCL 100 MG TABLET (FP) PO SCH (22:31)
[2022-04-11] MEDS: MELATONIN 5 MG TABLETS PO SCH (22:31)
[2022-04-12] MEDS ORDERED: chlordiazePOXIDE HCL 10 MG CAPSULE PO ONE (05:00)
[2022-04-12 06:53] VITALS: TEMP 98
[2022-04-12] MEDS: NICOTINE 10 MG CARTRIDGE (INHALER) IH PRN (08:49)
[2022-04-12 09:41] VITALS: BP 129/82; PULSE 91; RESP 17
[2022-04-12] MEDS ORDERED: TRIAMCINOLONE ACET 0.1% CREAM 15 GM TUBE TP SCH (10:00)
[2022-04-12] MEDS: NICOTINE 14 MG/24 HOURS TOPICAL PATCH TD SCH (10:16)
[2022-04-12] MEDS: DIVALPROEX SODIUM 250 MG TABLET E.C. PO SCH (10:16)
[2022-04-12] MEDS: BACITRACIN 0.9 GM PACKET TP SCH (10:16)
[2022-04-12] MEDS: FLUOCINONIDE 0.05% TOP OINT (60 GM TUBE) TP SCH (10:16)
[2022-04-12] MEDS: PRENATAL VITAMINS W/ FOLIC ACID TABLET (FP) PO SCH (10:16)
== END 2022-04-12 10:18 | disposition home or self-care (01) | DRG 897 ==
LOC: YASAS 17:48 → Y6N 04-09 05:39
PROVIDERS: ADMIT Allergy & Immunology; ATTEND Family Medicine
PROC: HZ2ZZZZ Detoxification Services for Substance Abuse Treatment (ICD-10-PCS; principal; 2022-04-09)
DX: F10.230 Alcohol dependence with withdrawal, uncomplicated (principal); F14.20 Cocaine dependence, uncomplicated; F31.81 Bipolar II disorder; F17.210 Nicotine dependence, cigarettes, uncomplicated; F19.24 Other psychoactive substance dependence with psychoactive substance-induced mood disorder; F43.10 Post-traumatic stress disorder, unspecified; F41.8 Other specified anxiety disorders; E78.5 Hyperlipidemia, unspecified; I10 Essential (primary) hypertension; J45.20 Mild intermittent asthma, uncomplicated; L40.9 Psoriasis, unspecified; Z20.822 Contact with and (suspected) exposure to COVID-19; Z88.0 Allergy status to penicillin
CPT/HCPCS: 36415; 80053; 80164; 85027; 86780; 87811; C9803-CS; U0003; U0005